=== PATIENT | male | born 1965 | race Caucasian/White ===

== ENCOUNTER → 2024-06-28 08:24 | Outpatient (CLI) | payer OTHER, SELFPAY ==
--- NOTE | 2024-06-28 08:26 | DI.MRI.S_ITS ---
PROCEDURE: MR KNEE RT WO CON INDICATIONS: PAIN IN RT KNEE TECHNIQUE: Noncontrast sagittal PD fast spin echo and T2 fast spin echo with fat saturation, sagittal 3-D FLASH with fat saturation; coronal T1 spin echo and PD fast spin echo with fat saturation, and axial PD fast spin echo with fat saturation through the knee. COMPARISON: None. FINDINGS: Image quality: Excellent. Menisci: The medial and lateral menisci demonstrate normal morphology and internal signal. The meniscal root ligaments appear intact. Cruciate ligaments: The anterior cruciate ligament appears thickened with intrasubstance T2 hyperintense signal. The posterior cruciate ligament is intact. Medial structures: The medial collateral ligament appears mildly thickened with surrounding edema. Visualized portions of the pes anserinus tendons appear normal. No abnormal bursal fluid. Lateral structures: The lateral collateral ligament, long and short heads of the biceps femoris tendon appear intact. The popliteus tendon appears normal. Iliotibial band appears normal. Anterior structures: Distal quadriceps tendinosis at its superior patellar insertion is seen. Thickened proximal patellar tendon with intrasubstance T2 hyperintense signal and surrounding edema is noted at its inferior patellar insertion. Distal patellar tendinosis at its anterior tibial insertion is seen. Small enthesophyte formation involving inferior patella at patellar tendon insertion site is seen with anterior soft tissue edema and swelling. Prominent enthesophyte formation in proximal tibial tuberosity at distal patellar tendon insertion is also seen with mild anterior soft tissue swelling. No significant patellar subluxation. Bones and cartilage: No bone marrow contusions or fractures. 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 Joint space: There is small knee joint fluid. No Tristan's cyst. Normal appearing synovial plicae are incidentally noted. IMPRESSION: 1. Moderate tendinosis and partial-thickness tear involving proximal patellar tendon at its inferior patellar insertion. Enthesophyte formation is noted involving inferior patella at proximal patellar tendon insertion with anterior subcutaneous soft tissue edema and mild swelling. 2. Distal patellar tendinosis at its anterior tibial insertion. Prominent enthesophyte formation involving anterior tibial tuberosity. Mild anterior soft tissue swelling and edema. 3. Distal quadriceps tendinosis. No significant prepatellar bursal fluid. 4. Degenerative changes and low-grade intrasubstance partial-thickness tear involving ACL. No ACL rupture. The PCL is intact. 5. No evidence of focal meniscal tear. 6. Very mild proximal MCL sprain. 7. Low-grade chondromalacia in medial femoral tibial compartment. No fracture or dislocation. Small joint effusion, no loose bodies. Dictated by: Omkar Jacques M.D. on 06/28/2024 at 11:32 Approved by: Omkar Jacques M.D. on 06/28/2024 at 11:35
== END ==
PROVIDERS: Referring Provider Nurse Practitioner Family; Visit Provider Nurse Practitioner Family
DX: S76.111A Strain of right quadriceps muscle, fascia and tendon, initial encounter (principal); S83.411A Sprain of medial collateral ligament of right knee, initial encounter; M94.261 Chondromalacia, right knee; M25.461 Effusion, right knee; M25.561 Pain in right knee
CPT/HCPCS: 73721

== ENCOUNTER → 2024-09-22 10:38 | Outpatient (CLI) | payer OTHER, SELFPAY ==
--- NOTE | 2024-09-22 | DI.MRI.S_ITS ---
PROCEDURE: MR HUMERUS RT WO CON INDICATIONS: Rt Upper arm pain TECHNIQUE: Noncontrast coronal and sagittal T1 spin echo and STIR; axial T1 spin echo and T2 fast spin echo with fat saturation through the right humerus. COMPARISON: None. FINDINGS: Image quality: Excellent. Bones: The visualized bone marrow demonstrates normal signal on all sequences. The overlying cortex appears intact. No acute fractures lines or intra-osseous lesions. Mild degenerative spurring in the glenoid rim. Soft tissues: The scanned muscles demonstrate normal overall bulk and internal signal. The internal structures of the shoulder and elbow are not optimally evaluated on this exam that is tailored for evaluation of the humerus. Suspected trace olecranon bursal fluid. No soft tissue masses are present. Trace subacromial/subdeltoid bursal fluid. No significant glenohumeral effusion. IMPRESSION: No acute osseous abnormality. No significant ligament or tendon injury in the upper arm. If there is clinical concern for internal derangement within either the shoulder or elbow, consider dedicated joint MRI. Approved by: Mannie Frazier M.D. on 09/24/2024 at 9:36
== END ==
PROVIDERS: Referring Provider Nurse Practitioner Family; Visit Provider Nurse Practitioner Family
DX: M79.621 Pain in right upper arm (principal)
CPT/HCPCS: 73218

== ENCOUNTER → 2024-12-26 11:16 | Outpatient (CLI) | payer OTHER, SELFPAY ==
--- NOTE | 2024-12-26 11:22 | DI.RAD.S_ITS ---
PROCEDURE: [place] JOINT INJECTION LARGE RT shoulder INDICATIONS: Right shoulder ongoing pain and labral tear COMPARISON: None. TECHNIQUE: The indications, alternatives, benefits, risks, and complications of the procedure were explained to the patient. Written informed consent was obtained and placed in the chart. The patient was placed in an appropriate position on the fluoroscopy table, and a site was chosen for percutaneous access under fluoroscopic guidance. The site was prepped and draped in a sterile fashion. Local anesthetic was administered using a 1% lidocaine solution. A hypodermic or spinal needle was then used to access the symptomatic joint. Intra-articular location of the needle tip was confirmed by injecting a small amount of contrast, followed by steroid administration. The needle was then withdrawn, and a bandage applied to the puncture site. FINDINGS: Joint injected: Right glenohumeral joint Medications injected: 1 mL of 40 mg/mL Kenalog and 7 mL 0.5% Ropivacaine mixture. Patient's pain before injection: 9 out of 10. Patient's pain after injection: 0 out of 10. Complications: None. IMPRESSION: Successful fluoroscopically guided administration of steroid and anaesthetic solution into the right glenohumeral joint. Dictated by: Darrian Monique M.D. on 12/26/2024 at 21:37 Approved by: Darrian Monique M.D. on 12/26/2024 at 21:40
[2024-12-26] MEDS: LIDOCAINE 1% 20 ML INJ (11:55)
[2024-12-26] MEDS: ROPIVACAINE 0.5% PF 5 MG/ML 20ML VIAL 20 ML INJ (11:56)
[2024-12-26] MEDS: TRIAMCINOLONE 40 MG/ML VIAL INTRA-ARTI (11:56)
== END ==
LOC: RAD 11:22
DX: S43.431A Superior glenoid labrum lesion of right shoulder, initial encounter (principal); X58.XXXA Exposure to other specified factors, initial encounter
CPT/HCPCS: 20610; 77002; Q9967

== ENCOUNTER → 2025-05-06 12:06 | Outpatient (CLI) | payer OTHER, SELFPAY ==
--- NOTE | 2025-05-06 12:15 | DI.RAD.S_ITS ---
PROCEDURE: FL JOINT INJECTION LARGE RT INDICATIONS: pain in right shoulder COMPARISON: [facility], , [place] JOINT INJECTION LARGE RT, 12/26/2024, 10:38. TECHNIQUE: The indications, alternatives, benefits, risks, and complications of the procedure were explained to the patient. Written informed consent was obtained and placed in the chart. The patient was placed in an appropriate position on the fluoroscopy table, and a site was chosen for percutaneous access under fluoroscopic guidance. The site was prepped and draped in a sterile fashion. Local anesthetic was administered using a 1% lidocaine solution. A hypodermic or spinal needle was then used to access the symptomatic joint. Intra-articular location of the needle tip was confirmed by injecting a small amount of contrast, followed by steroid administration. The needle was then withdrawn, and a bandage applied to the puncture site. FINDINGS: Joint injected: Right glenohumeral joint Medications injected: 4 mL of 40 mg/mL Kenalog and 0.5% Ropivacaine mixture. Complications: None. IMPRESSION: Successful fluoroscopically guided administration of steroid and anaesthetic solution into the right glenohumeral joint. Dictated by: Pedro Weaver M.D. on 05/06/2025 at 16:05 Approved by: Pedro Weaver M.D. on 05/06/2025 at 16:07
[2025-05-06] MEDS: TRIAMCINOLONE 40 MG/ML VIAL INTRA-ARTI (13:27)
[2025-05-06] MEDS: LIDOCAINE 1% 20 ML INJ (13:27)
== END ==
LOC: RAD 12:14
DX: M25.511 Pain in right shoulder (principal)
CPT/HCPCS: 20610; 77002